=== PATIENT | male | born 1950 | race Caucasian/White ===

== ENCOUNTER 2018-10-26 07:16 | Day surgery (SDC) | payer OTHER, BC ==
[2018-10-22 14:09] VITALS: BMI 25.8
[2018-10-26] MEDS ORDERED: PROPOFOL 20 ML ONE ×3 (08:56)
[2018-10-26 09:48] VITALS: TEMP 97.6
[2018-10-26 10:10] VITALS: BP 128/70; PULSE 46
--- NOTE | 2018-10-29 15:26 | PATH ---
Surgical Pathology Report Patient Name: TEOFILO VENEGAS [facility]. Rec. #: [id number] /Age/Gender: 1950 (Age: 68) / M Account: [id number] Location: [facility] Taken: 10/26/2018 Received: 10/26/2018 Reported: 10/29/2018 Physicians: Mateo Kumari M.D. Specimen(s) Received A: BX SECOND PORTION DUODENUM B: BX DUODENAL BULB C: BX GASTRIC ANTRUM D: BX POLYP SIGMOID COLON Clinical History Rule out celiac, screening Postoperative diagnosis: History of celiac, polyp, diverticulosis Final Diagnosis A. SECOND PORTION DUODENUM, BIOPSY: DUODENAL MUCOSA SHOWING INCREASED INTRAEPITHELIAL LYMPHOCYTES, DENSE LYMPHOPLASMOCYTIC INFILTRATE WITHIN LAMINA PROPRIA AND MARKED VILLOUS BLUNTING. THESE FEATURES ARE SEEN IN ASSOCIATION WITH MALABSORPTION.-RELATED DISORDERS SUCH CELIAC DISEASE. CORRELATION WITH CLINICAL AND SEROLOGIC FINDINGS IS SUGGESTED. B. DUODENAL BULB, BIOPSY: DUODENAL MUCOSA SHOWING INCREASED INTRAEPITHELIAL LYMPHOCYTES, DENSE LYMPHOPLASMOCYTIC INFILTRATE WITHIN LAMINA PROPRIA AND MARKED VILLOUS BLUNTING. THESE FEATURES ARE SEEN IN ASSOCIATION WITH MALABSORPTION.-RELATED DISORDERS SUCH CELIAC DISEASE. CORRELATION WITH CLINICAL AND SEROLOGIC FINDINGS IS SUGGESTED. C. GASTRIC ANTRUM, BIOPSY: MILD CHRONIC GASTRITIS. IMMUNOSTAIN IS NEGATIVE FOR H. PYLORI ORGANISMS. D. SIGMOID COLON, POLYP, BIOPSY: TUBULAR ADENOMA. Electronically Signed Morelia Molina M.D. Gross Description A. Received in formalin, labeled "biopsy second portion of duodenum" are 5 banegas, irregular portions of soft tissue ranging from 0.3-0.4 cm. in greatest dimension. The specimens are submitted in toto in one cassette. B. Received in formalin, labeled "biopsy duodenal bulb" are 4 banegas, irregular portions of soft tissue ranging from 0.3-0.5 cm. in greatest dimension. The specimens are submitted in toto in one cassette. C. Received in formalin, labeled "biopsy gastric antrum" are 2 banegas, irregular portions of soft tissue measuring 0.4 and 0.5 cm. in greatest dimension. The specimens are submitted in toto in one cassette. D. Received in formalin, labeled "biopsy polyp sigmoid colon" is a banegas, irregular portion of soft tissue measuring 0.7 cm. in greatest dimension. The specimen is submitted in toto in one cassette. 10/27/2018 [facility]10/27/2018
== END 2018-10-26 10:10 | disposition home or self-care (01) ==
LOC: FASU-ENDO 07:16
PROVIDERS: ATTEND Internal Medicine Gastroenterology
PROC: 0DB68ZX Excision of Stomach, Via Natural or Artificial Opening Endoscopic, Diagnostic (ICD-10-PCS; 2018-10-26)
PROC: 0DBN8ZX Excision of Sigmoid Colon, Via Natural or Artificial Opening Endoscopic, Diagnostic (ICD-10-PCS; principal; 2018-10-26 09:07)
PROC: 0DB98ZX Excision of Duodenum, Via Natural or Artificial Opening Endoscopic, Diagnostic (ICD-10-PCS; 2018-10-26 09:07)
DX: Z86.010 Personal history of colon polyps (principal); D12.5 Benign neoplasm of sigmoid colon; K57.30 Diverticulosis of large intestine without perforation or abscess without bleeding; K29.50 Unspecified chronic gastritis without bleeding; K31.89 Other diseases of stomach and duodenum; Z87.19 Personal history of other diseases of the digestive system
CPT/HCPCS: 88305-TC; 88342-TC

== ENCOUNTER 2021-04-19 11:54 | Emergency (ER) | payer OTHER, BC ==
[2021-04-19 12:03] VITALS: BP 135/76; PULSE 58; TEMP 99.5; BMI 25.7
[2021-04-19 12:39] LABS: ACTIVATED PTT 33.4 SECONDS (25.2-36.5)
[2021-04-19 12:44] LABS: INR 1.28 (0.82-1.09); PROTHROMBIN TIME (PATIENT) 14.3 SEC (10.2-13.0)
[2021-04-19 12:52] LABS: BASO % 1.2 % (0-2.0); EOS % 0.5 % (0-4.5); HEMATOCRIT 43.4 % (35.4-49); HEMOGLOBIN 14.9 GM/dl (11.7-16.9); LYMPH % 13.3 % (8-40); MCH 32.3 pg (25.7-33.7); MCHC 34.4 g/dl (32.0-35.9); MEAN CELL VOLUME 93.8 fl (80-96); MONO % 10.7 % (3.8-10.2); NEUT % 74.3 % (42.8-82.8); PLATELET COUNT 236 10^3/uL (134-434); RBC 4.63 M/mm3 (4.00-5.60); RDW 13.2 % (11.9-15.9); WHITE BLOOD COUNT 9.9 K/mm3 (4.0-10.8)
[2021-04-19 12:57] LABS: ALBUMIN 4.1 g/dl (3.4-5.0); BILIRUBIN,TOTAL 1.2 mg/dl (0.2-1); CALCIUM 8.7 mg/dl (8.5-10); CREATININE 0.7 mg/dl (0.55-1.3)
[2021-04-19] MEDS ORDERED: SODIUM CHLORIDE 0.9% 500 ML INFUS.BAG IV ONE (13:15)
[2021-04-19] MEDS ORDERED: metroNIDAZOLE 250 MG TABLET PO ONE (14:52)
[2021-04-19] MEDS ORDERED: CIPROFLOXACIN 500 MG TABLET (RESTRICTED TO ID) PO ONE (14:52)
[2021-04-19] MEDS ORDERED: metroNIDAZOLE 250 MG TABLET ONE (14:59)
[2021-04-19] MEDS ORDERED: CIPROFLOXACIN 250 MG TABLET (RESTRICTED TO ID) PO ONE (14:59)
== END 2021-04-19 15:07 | disposition home or self-care (01) ==
LOC: FER 11:54
DX: K57.92 Diverticulitis of intestine, part unspecified, without perforation or abscess without bleeding (principal)
CPT/HCPCS: 36415; 74177-TC; 80053; 81003; 82272; 85025; 85610; 85730; 86850; 86900; 86901; 87086; 93005; 99285-25; Q9967

== ENCOUNTER 2021-05-02 14:04 | Inpatient (IN) | payer OTHER, BC ==
[2021-05-02 14:48] LABS: BASO % 1.9 % (0-2.0); EOS % 0.5 % (0-4.5); HEMOGLOBIN 14.6 GM/dl (11.7-16.9); LYMPH % 13.7 % (8-40); MCH 32.8 pg (25.7-33.7); MCHC 34.8 g/dl (32.0-35.9); MEAN CELL VOLUME 94.1 fl (80-96); MEAN PLT VOLUME 8.2 fl (7.5-11.1); MONO % 7.7 % (3.8-10.2); NEUT % 76.2 % (42.8-82.8); PLATELET COUNT 248 10^3/uL (134-434); RBC 4.47 M/mm3 (4.00-5.60); WHITE BLOOD COUNT 8.4 K/mm3 (4.0-10.8)
[2021-05-02 14:53] LABS: ACTIVATED PTT 33.5 SECONDS (25.2-36.5)
[2021-05-02 14:55] LABS: ALBUMIN 4.2 g/dl (3.4-5.0); BILIRUBIN,TOTAL 0.8 mg/dl (0.2-1); CALCIUM 8.9 mg/dl (8.5-10); CREATININE 0.7 mg/dl (0.55-1.3)
[2021-05-02 14:58] LABS: INR 1.36 (0.82-1.09); PROTHROMBIN TIME (PATIENT) 15.1 SEC (10.2-13.0)
[2021-05-02] MEDS ORDERED: PIPERACILLIN/TAZOB 4.5 GM 4.5 GM/100 ML BAG IVPB ONE (15:24)
[2021-05-02] MEDS ORDERED: PIPERACILLIN/TAZOBACTAM 4.5 GM VIAL IVPB ONE (15:31)
[2021-05-02] MEDS ORDERED: morphine CARPU-JECT 2 MG/1 ML DISP.SYRIN IVPUSH ONE (21:06)
[2021-05-02] MEDS ORDERED: morphine SULFATE 4 MG/ML VIAL ONE (21:12)
[2021-05-02 22:43] VITALS: BMI 24.8
[2021-05-02] MEDS: ACETAMINOPHEN 1000 MG/100 ML VIAL IVPB PRN (22:52)
[2021-05-02] MEDS: amLODIPine BESYLATE 5 MG TABLET (FP) PO SCH (22:59)
[2021-05-02] MEDS: ROSUVASTATIN CA 5 MG TABLET (FP) PO SCH (22:59)
[2021-05-03] MEDS ORDERED: PIPERACILLIN/TAZOB 2.25 GM 2.25 GM in DEXTROSE 5%-WATER - 50 ML IVPB ONE (03:40)
[2021-05-03] MEDS ORDERED: POTASSIUM CHLORIDE TABS 20 MEQ TABLET.ER (FP) PO ONE (03:46)
[2021-05-03] MEDS ORDERED: DEXTROSE 5%-WATER - 50 ML IVPB ONE (03:47)
[2021-05-03] MEDS ORDERED: PIPERACILLIN/TAZOBACTAM 2.25 GM VIAL IVPB ONE (03:47)
[2021-05-03 08:07] LABS: BASO % 0.8 % (0-2.0); EOS % 2.6 % (0-4.5); HEMATOCRIT 39.2 % (35.4-49); HEMOGLOBIN 13.4 GM/dl (11.7-16.9); LYMPH % 20.9 % (8-40); MCH 32.3 pg (25.7-33.7); MCHC 34.1 g/dl (32.0-35.9); MEAN CELL VOLUME 94.7 fl (80-96); MEAN PLT VOLUME 8.4 fl (7.5-11.1); MONO % 10.3 % (3.8-10.2); NEUT % 65.4 % (42.8-82.8); PLATELET COUNT 236 10^3/uL (134-434); RBC 4.13 M/mm3 (4.00-5.60); RDW 13.1 % (11.9-15.9); WHITE BLOOD COUNT 5.3 K/mm3 (4.0-10.8)
[2021-05-03 08:09] LABS: CALCIUM 8.7 mg/dl (8.5-10); CREATININE 0.8 mg/dl (0.55-1.3)
[2021-05-03] MEDS ORDERED: KETOROLAC TROMETHAMINE 15 MG/ML VIAL IVPUSH ONE (09:00)
[2021-05-03] MEDS ORDERED: DICYCLOMINE HCL 10 MG/5 ML PO PRN (09:05)
[2021-05-03] MEDS ORDERED: DEXTROSE 5%-WATER 100 ML IVPB ONE ×2 (09:16→10:32)
[2021-05-03] MEDS ORDERED: PIPERACILLIN/TAZOBACTAM 4.5 GM VIAL IVPB ONE (09:17)
[2021-05-03] MEDS ORDERED: DICYCLOMINE HCL 10 MG CAPSULE PO PRN (09:24)
[2021-05-03] MEDS: ENOXAPARIN NA (PORCINE) 40 MG/0.4 ML DISP.SYRIN SQ SCH (09:24)
[2021-05-03] MEDS ORDERED: PIPERACILLIN/TAZOB 4.5 GM 4.5 GM in DEXTROSE 5%-WATER 100 ML IVPB SCH (10:00)
[2021-05-03] MEDS: CEFTRIAXONE 2 GM in DEXTROSE 5%-WATER 100 ML IVPB SCH (10:38)
[2021-05-03] MEDS ORDERED: PATIENT'S OWN MEDICATION (NON-FORMULARY) (Losartan/Hydrochlorothiazide [Hyzaar 100-25 Tabl PO SCH (11:15)
[2021-05-03] MEDS ORDERED: MAGNESIUM HYDROX 2400MG/30ML ORAL SUSPENSION 30 ML CUP PO ONE (12:15)
[2021-05-03] MEDS: LOSARTAN 50MG/HCTZ 12.5MG 1 TAB PO SCH (12:47)
[2021-05-03] MEDS: ACETAMINOPHEN 1000 MG/100 ML VIAL IVPB PRN (16:08)
[2021-05-03] MEDS: ROSUVASTATIN CA 5 MG TABLET (FP) PO SCH (21:36)
[2021-05-03] MEDS: amLODIPine BESYLATE 5 MG TABLET (FP) PO SCH (22:56)
[2021-05-04] MEDS: amLODIPine BESYLATE 5 MG TABLET (FP) PO SCH ×2 (00:34→21:26)
[2021-05-04] MEDS ORDERED: ACETAMINOPHEN 1000 MG/100 ML VIAL IVPB ONE (01:28)
[2021-05-04] MEDS: ENOXAPARIN NA (PORCINE) 40 MG/0.4 ML DISP.SYRIN SQ SCH (09:09)
[2021-05-04] MEDS: LOSARTAN 50MG/HCTZ 12.5MG 1 TAB PO SCH (09:09)
[2021-05-04] MEDS ORDERED: DEXTROSE 5%-WATER 100 ML IVPB ONE (10:14)
[2021-05-04] MEDS: SENNOSIDES/DOCUSATE COMBO (SENNA PLUS) TABLET (UD) PO SCH ×2 (10:19→21:27)
[2021-05-04] MEDS: CEFTRIAXONE 2 GM in DEXTROSE 5%-WATER 100 ML IVPB SCH (10:19)
[2021-05-04] MEDS: POLYETHYLENE GLYCOL 3350 119 GM BTL PO SCH ×2 (10:20→21:26)
[2021-05-04] MEDS: ROSUVASTATIN CA 5 MG TABLET (FP) PO SCH (21:25)
[2021-05-05 08:18] LABS: BASO % 2.3 % (0-2.0); EOS % 3.1 % (0-4.5); HEMATOCRIT 39.8 % (35.4-49); HEMOGLOBIN 13.3 GM/dl (11.7-16.9); LYMPH % 21.7 % (8-40); MCH 31.4 pg (25.7-33.7); MCHC 33.4 g/dl (32.0-35.9); MEAN CELL VOLUME 93.9 fl (80-96); MEAN PLT VOLUME 8.9 fl (7.5-11.1); MONO % 10.5 % (3.8-10.2); NEUT % 62.4 % (42.8-82.8); PLATELET COUNT 229 10^3/uL (134-434); RBC 4.24 M/mm3 (4.00-5.60); WHITE BLOOD COUNT 4.5 K/mm3 (4.0-10.8)
[2021-05-05 08:29] LABS: ALBUMIN 3.5 g/dl (3.4-5.0); BILIRUBIN,TOTAL 0.7 mg/dl (0.2-1); CALCIUM 8.8 mg/dl (8.5-10); CREATININE 0.7 mg/dl (0.55-1.3); TOT PROT 5.9 g/dl (6.4-8.2)
[2021-05-05] MEDS ORDERED: DEXTROSE 5%-WATER 100 ML IVPB ONE (09:10)
[2021-05-05 09:24] VITALS: BP 114/68; PULSE 44; TEMP 97.8
[2021-05-05] MEDS: SENNOSIDES/DOCUSATE COMBO (SENNA PLUS) TABLET (UD) PO SCH (09:32)
[2021-05-05] MEDS: LOSARTAN 50MG/HCTZ 12.5MG 1 TAB PO SCH (09:32)
[2021-05-05] MEDS: ENOXAPARIN NA (PORCINE) 40 MG/0.4 ML DISP.SYRIN SQ SCH (09:33)
[2021-05-05] MEDS: POLYETHYLENE GLYCOL 3350 119 GM BTL PO SCH (09:34)
[2021-05-05] MEDS: CEFTRIAXONE 2 GM in DEXTROSE 5%-WATER 100 ML IVPB SCH (10:58)
== END 2021-05-05 13:00 | disposition home or self-care (01) | DRG 392 ==
LOC: FER 14:04 → FM/S 22:08
PROVIDERS: ADMIT Internal Medicine; ATTEND Nurse Practitioner Family
DX: K57.32 Diverticulitis of large intestine without perforation or abscess without bleeding (principal); E78.5 Hyperlipidemia, unspecified; K59.00 Constipation, unspecified; I10 Essential (primary) hypertension; R10.32 Left lower quadrant pain
CPT/HCPCS: 36415; 74177-TC; 80048; 80053; 81003; 83605; 83690; 83735; 85025; 85610; 85730; 86850; 86900; 86901; 87086; 93005; 99285-25; C9803; J0131; Q9967; U0003; U0005

== ENCOUNTER 2021-07-15 19:55 | Observation (INO) | payer OTHER, BC ==
[2021-07-15] MEDS ORDERED: ASPIRIN 325 MG TABLET PO STA (20:22)
[2021-07-15] MEDS ORDERED: ASPIRIN 325 MG TABLET ONE (20:29)
[2021-07-15 20:51] LABS: ALBUMIN 4.4 g/dl (3.4-5.0); BILIRUBIN,TOTAL 0.4 mg/dl (0.2-1); CALCIUM 9.3 mg/dl (8.5-10); CREATININE 0.8 mg/dl (0.55-1.3); TOT PROT 6.2 g/dl (6.4-8.2)
[2021-07-15] MEDS ORDERED: KETOROLAC TROMETHAMINE 30 MG/1 ML VIAL IVPUSH ONE (21:05)
[2021-07-15] MEDS ORDERED: KETOROLAC TROMETHAMINE 30 MG/1 ML VIAL ONE (21:11)
[2021-07-15 21:34] LABS: BASO % 0.5 % (0-2.0); EOS % 1.4 % (0-4.5); HEMATOCRIT 43.6 % (35.4-49); HEMOGLOBIN 14.9 GM/dL (11.7-16.9); LYMPH % 13.6 % (8-40); MCHC 34.2 g/dl (32.0-35.9); MEAN CELL VOLUME 93.4 fl (80-96); MEAN PLT VOLUME 9.3 fl (7.5-11.1); MONO % 7.9 % (3.8-10.2); NEUT % 76.6 % (42.8-82.8); PLATELET COUNT 238 10^3/uL (134-434); RBC 4.66 M/mm3 (4.00-5.60); RDW 14.3 % (11.9-15.9); WHITE BLOOD COUNT 11.2 K/mm3 (4.0-10.0)
[2021-07-15 21:47] LABS: INR 1.17 (0.83-1.09)
[2021-07-15 23:26] VITALS: BMI 25.1
[2021-07-16] MEDS ORDERED: morphine SULFATE 4 MG/ML VIAL IVPUSH ONE (05:15)
[2021-07-16 08:15] LABS: ALBUMIN 3.8 g/dl (3.4-5.0); BILIRUBIN,TOTAL 0.8 mg/dl (0.2-1); CALCIUM 8.9 mg/dl (8.5-10); CREATININE 0.8 mg/dl (0.55-1.3); MAGNESIUM 1.8 mg/dL (1.8-2.4); TOT PROT 6.3 g/dl (6.4-8.2)
[2021-07-16 09:09] LABS: BASO % 0.4 % (0-2.0); EOS % 0.3 % (0-4.5); HEMATOCRIT 41.7 % (35.4-49); HEMOGLOBIN 14.2 GM/dL (11.7-16.9); LYMPH % 10.3 % (8-40); MCH 31.8 pg (25.7-33.7); MCHC 34.1 g/dl (32.0-35.9); MEAN CELL VOLUME 93.2 fl (80-96); MONO % 12.4 % (3.8-10.2); NEUT % 76.6 % (42.8-82.8); PLATELET COUNT 218 10^3/uL (134-434); RBC 4.48 M/mm3 (4.00-5.60); RDW 14.4 % (11.9-15.9); WHITE BLOOD COUNT 8.4 K/mm3 (4.0-10.0)
[2021-07-16] MEDS ORDERED: LOSARTAN POTASSIUM 50 MG TABLET PO SCH (10:00)
[2021-07-16] MEDS ORDERED: ROSUVASTATIN CA 5 MG TABLET PO SCH (10:00)
[2021-07-16] MEDS ORDERED: ASPIRIN 81 MG CHEWABLE TABLETS PO SCH (10:00)
[2021-07-16] MEDS ORDERED: HYDROCHLOROTHIAZIDE 12.5 MG CAPSULE (FP) PO SCH (10:00)
[2021-07-16] MEDS ORDERED: amLODIPine BESYLATE 5 MG TABLET (FP) PO SCH (10:00)
[2021-07-16 14:20] VITALS: TEMP 98.8
[2021-07-16 14:27] VITALS: BP 128/58; PULSE 61
== END 2021-07-16 17:07 | disposition home or self-care (01) ==
LOC: FER 19:55 → FM/S 22:52
PROVIDERS: ATTEND Nurse Practitioner Acute Care
PROC: 3E0333Z Introduction of Anti-inflammatory into Peripheral Vein, Percutaneous Approach (ICD-10-PCS; principal; 2021-07-15)
PROC: 3E033NZ Introduction of Analgesics, Hypnotics, Sedatives into Peripheral Vein, Percutaneous Approach (ICD-10-PCS; 2021-07-15)
DX: R07.9 Chest pain, unspecified (principal); I11.9 Hypertensive heart disease without heart failure; K57.92 Diverticulitis of intestine, part unspecified, without perforation or abscess without bleeding; I65.29 Occlusion and stenosis of unspecified carotid artery; E78.5 Hyperlipidemia, unspecified; Z91.018 Allergy to other foods
CPT/HCPCS: 36415; 71045-TC-FY; 80053; 80061; 82550; 82553; 83735; 84443; 84484; 85025; 85610; 93005; 93306-TC; 96374; 96375; 99285-25; C9803; G0378; U0003; U0005

== ENCOUNTER 2024-11-08 07:45 | Day surgery (SDC) | payer OTHER, BC ==
[2024-11-03 15:04] VITALS: BMI 24.6
[2024-11-08 08:13] VITALS: RESP 16
[2024-11-08 09:40] VITALS: BP 130/58; PULSE 49; TEMP 97.7
== END 2024-11-08 09:49 | disposition home or self-care (01) ==
LOC: FASU-ENDO 07:45
PROVIDERS: ATTEND Internal Medicine Gastroenterology
PROC: 0DJD8ZZ Inspection of Lower Intestinal Tract, Via Natural or Artificial Opening Endoscopic (ICD-10-PCS; principal; 2024-11-08 08:46)
DX: Z12.11 Encounter for screening for malignant neoplasm of colon (principal); Z86.0109 Personal history of other colon polyps